=== PATIENT | female | born 1990 | race Caucasian/White ===

== ENCOUNTER 2021-12-18 00:31 | Emergency (ER) | payer OTHER ==
[~2021-12-18] VITALS: Ht 175.3 cm; Wt 170.0 kg
[2021-12-18] VITALS (9 sets, daily range): BP systolic 129–165; BP diastolic 66–94
[2021-12-18 01:33] LABS: HEMATOCRIT 43.4 % (37.0-47.0); HEMOGLOBIN 13.7 g/dl (12.0-16.0); IMMATURE GRANULOCYTES 0.3 % (0.0-5.0); MEAN CELL VOLUME 91.6 fL CALC (80.0-100.0); MEAN CORPUSCULAR HGB 28.9 pG CALC (26.0-32.0); MEAN CORPUSCULAR HGB CONC 31.6 g/dL CAL (32.0-36.0); NEUT# 8.24 thou/uL (2.00-7.15); RED BLOOD COUNT 4.74 mill/uL (4.20-5.60); RED CELL DISTRI WIDTH 12.9 % (11.5-15.5)
[2021-12-18 01:35] LABS: URINE BILIRUBIN - DIPSTICK NEGATIVE (NEGATIVE); URINE BLOOD DIPSTICK NEGATIVE (NEGATIVE); URINE COLOR YELLOW; URINE GLUCOSE - DIPSTICK NEGATIVE (NEGATIVE); URINE KETONE NEGATIVE (NEGATIVE); URINE LEUK ESTERASE NEGATIVE (NEGATIVE); URINE PROTEIN - DIPSTICK NEGATIVE (NEG-TRACE); URINE SPECIFIC GRAVITY >=1.030; URINE UROBILINOGEN - DIPSTICK 0.2 E.U./dL (0.2)
[2021-12-18 01:38] LABS: URINE NITRITE - DIPSTICK NEGATIVE (Negative)
[2021-12-18 01:39] LABS: ALBUMIN 3.8 g/dL (3.2-5.0); ALKALINE PHOSPHATASE 66 u/l (38-126); AMYLASE 61 u/l (30-110); ANION GAP 13 (6-22 (CALC)); BILIRUBIN, TOTAL 0.3 mg/dL (0.0-1.4); BUN 10 mg/dL (7-17); BUN/CREATININE RATIO 13 (12-20 (CALC)); CARBON DIOXIDE 25 mmol/l (22-30); CHLORIDE 104 mmol/l (95-108); CREATININE 0.8 mg/dL (0.5-1.0); GFR FOR AFR.AMER. > 60 ML/MIN (>=60 (CALC)); GFR OTHER RACES > 60 ML/MIN (>=60 (CALC)); LIPASE 95 u/l (23-300); POTASSIUM 4.2 mmol/l (3.5-5.1); SGOT/AST 19 u/l (14-36); SODIUM 138 mmol/l (137-146); TOTAL PROTEIN 6.7 g/dL (6.3-8.2)
[2021-12-18] MEDS ORDERED: OB COMPLET2 PO (04:53)
== END 2021-12-18 05:15 | disposition home or self-care (01) ==
LOC: ED 00:31
PROVIDERS: Family Medicine
DX: F17.210 Nicotine dependence, cigarettes, uncomplicated (principal); R10.32 Left lower quadrant pain; O26.891 Other specified pregnancy related conditions, first trimester; Z3A.01 Less than 8 weeks gestation of pregnancy

== ENCOUNTER 2022-02-16 22:42 | Emergency (ER) | payer OTHER ==
[~2022-02-16] VITALS: Ht 175.3 cm; Wt 159.0 kg
[~2022-02-16 22:42] MED LIST: OB COMPLET2 PO
[2022-02-16 23:00] VITALS: BP 140/66
[2022-02-16 23:47] LABS: HEMATOCRIT 38.1 % (37.0-47.0); HEMOGLOBIN 12.1 g/dl (12.0-16.0); IMMATURE GRANULOCYTES 0.2 % (0.0-5.0); MEAN CELL VOLUME 91.8 fL CALC (80.0-100.0); MEAN CORPUSCULAR HGB 29.2 pG CALC (26.0-32.0); MEAN CORPUSCULAR HGB CONC 31.8 g/dL CAL (32.0-36.0); NEUT# 7.77 thou/uL (2.00-7.15); RED BLOOD COUNT 4.15 mill/uL (4.20-5.60); RED CELL DISTRI WIDTH 13.1 % (11.5-15.5)
[2022-02-17 00:06] LABS: ALBUMIN 3.2 g/dL (3.2-5.0); ALKALINE PHOSPHATASE 55 u/l (38-126); AMYLASE 66 u/l (30-110); ANION GAP 8 (6-22 (CALC)); BUN 8 mg/dL (7-17); BUN/CREATININE RATIO 13 (12-20 (CALC)); CARBON DIOXIDE 26 mmol/l (22-30); CHLORIDE 106 mmol/l (95-108); CREATININE 0.6 mg/dL (0.5-1.0); GFR FOR AFR.AMER. > 60 ML/MIN (>=60 (CALC)); GFR OTHER RACES > 60 ML/MIN (>=60 (CALC)); LIPASE 84 u/l (23-300); POTASSIUM 3.7 mmol/l (3.5-5.1); SGOT/AST 17 u/l (14-36); SODIUM 136 mmol/l (137-146); TOTAL PROTEIN 6.1 g/dL (6.3-8.2)
[2022-02-17 00:08] LABS: BILIRUBIN, TOTAL 0.1 mg/dL (0.0-1.4)
[2022-02-17 00:18] LABS: MYOGLOBIN 25 ng/mL (0 - 62)
[2022-02-17 02:25] VITALS: BP 140/66
[2022-02-17] MEDS ORDERED: EQ OMEPRAZOLE20 MG PO (02:35)
[2022-02-17] MEDS ORDERED: ONDANSETRON4 MG PO (02:35)
== END 2022-02-17 02:40 | disposition home or self-care (01) ==
LOC: ED 22:42
PROVIDERS: Emergency Medicine
DX: O99.612 Diseases of the digestive system complicating pregnancy, second trimester (principal); K21.9 Gastro-esophageal reflux disease without esophagitis; O99.332 Smoking (tobacco) complicating pregnancy, second trimester; F17.200 Nicotine dependence, unspecified, uncomplicated; Z3A.17 17 weeks gestation of pregnancy
CPT/HCPCS: S0164

== ENCOUNTER 2022-02-20 22:58 | Emergency (ER) | payer OTHER ==
[~2022-02-20] VITALS: Ht 175.3 cm; Wt 154.0 kg
[~2022-02-20 22:58] MED LIST changes: +EQ OMEPRAZOLE20 MG PO; +ONDANSETRON4 MG PO
[2022-02-21 00:44] LABS: HEMATOCRIT 37.1 % (37.0-47.0); HEMOGLOBIN 12.3 g/dl (12.0-16.0); IMMATURE GRANULOCYTES 0.5 % (0.0-5.0); MEAN CELL VOLUME 89.6 fL CALC (80.0-100.0); MEAN CORPUSCULAR HGB 29.7 pG CALC (26.0-32.0); MEAN CORPUSCULAR HGB CONC 33.2 g/dL CAL (32.0-36.0); NEUT# 7.97 thou/uL (2.00-7.15); RED BLOOD COUNT 4.14 mill/uL (4.20-5.60); RED CELL DISTRI WIDTH 13.1 % (11.5-15.5)
[2022-02-21 01:02] LABS: ALBUMIN 3.4 g/dL (3.2-5.0); ALKALINE PHOSPHATASE 62 u/l (38-126); ANION GAP 10 (6-22 (CALC)); BILIRUBIN, TOTAL 0.1 mg/dL (0.0-1.4); BUN 8 mg/dL (7-17); BUN/CREATININE RATIO 12 (12-20 (CALC)); CARBON DIOXIDE 24 mmol/l (22-30); CHLORIDE 109 mmol/l (95-108); CREATININE 0.7 mg/dL (0.5-1.0); GFR FOR AFR.AMER. > 60 ML/MIN (>=60 (CALC)); GFR OTHER RACES > 60 ML/MIN (>=60 (CALC)); POTASSIUM 3.8 mmol/l (3.5-5.1); SGOT/AST 22 u/l (14-36); SODIUM 139 mmol/l (137-146); TOTAL PROTEIN 6.4 g/dL (6.3-8.2)
[2022-02-21 01:03] LABS: URINE BILIRUBIN - DIPSTICK NEGATIVE (NEGATIVE); URINE BLOOD DIPSTICK NEGATIVE (NEGATIVE); URINE COLOR YELLOW; URINE GLUCOSE - DIPSTICK NEGATIVE (NEGATIVE); URINE KETONE NEGATIVE (NEGATIVE); URINE LEUK ESTERASE NEGATIVE (NEGATIVE); URINE PH 5.5 (4.5-8.0); URINE PROTEIN - DIPSTICK NEGATIVE (NEG-TRACE); URINE SPECIFIC GRAVITY >=1.030; URINE UROBILINOGEN - DIPSTICK 0.2 E.U./dL (0.2)
[2022-02-21 01:10] LABS: URINE NITRITE - DIPSTICK NEGATIVE (Negative)
[2022-02-21 01:48] LABS: BETA-HCG, QUANT(RESULT NUMBER) 18696 mIU/mL
[2022-02-21 02:08] VITALS: BP 133/69
== END 2022-02-21 02:42 | disposition home or self-care (01) ==
LOC: ED 22:58
PROVIDERS: Emergency Medicine
DX: O20.0 Threatened abortion (principal); O99.212 Obesity complicating pregnancy, second trimester; E66.9 Obesity, unspecified; O99.332 Smoking (tobacco) complicating pregnancy, second trimester; F17.200 Nicotine dependence, unspecified, uncomplicated; Z3A.17 17 weeks gestation of pregnancy

== ENCOUNTER 2022-10-15 20:50 | Emergency (ER) | payer OTHER ==
[~2022-10-15] VITALS: Ht 175.3 cm; Wt 154.0 kg
[2022-10-15 21:10] VITALS: BP 147/95
[2022-10-15] MEDS ORDERED: NAPROXEN500 MG PO (22:01)
== END 2022-10-15 23:07 | disposition home or self-care (01) ==
LOC: ED 20:50
DX: S63.502A Unspecified sprain of left wrist, initial encounter (principal); E66.9 Obesity, unspecified; F17.200 Nicotine dependence, unspecified, uncomplicated; X58.XXXA Exposure to other specified factors, initial encounter

== ENCOUNTER 2023-04-25 18:06 | Emergency (ER) | payer OTHER ==
[~2023-04-25] VITALS: Ht 175.3 cm; Wt 147.0 kg
[~2023-04-25 18:06] MED LIST changes: +NAPROXEN500 MG PO
[2023-04-25] MEDS ORDERED: ADDERALL30 MG PO (18:36)
[2023-04-25] MEDS ORDERED: TRILEPTAL300 M1 PO (18:36)
[2023-04-25] MEDS ORDERED: NAPROXEN500 MG PO (18:59)
[2023-04-25] MEDS ORDERED: TRAMADOL HYDROC50 M1 PO (18:59)
[2023-04-25] MEDS ORDERED: PENICILLN VK500 MG PO (18:59)
[2023-04-25 19:15] VITALS: BP 145/78
== END 2023-04-25 19:27 | disposition home or self-care (01) ==
LOC: ED 18:06
DX: K04.7 Periapical abscess without sinus (principal); K02.9 Dental caries, unspecified; M84.68XA Pathological fracture in other disease, other site, initial encounter for fracture; E66.9 Obesity, unspecified; F17.210 Nicotine dependence, cigarettes, uncomplicated

== ENCOUNTER 2024-01-12 19:42 | Emergency (ER) | payer OTHER ==
[~2024-01-12] VITALS: Ht 175.3 cm; Wt 181.0 kg
[~2024-01-12 19:42] MED LIST changes: +ADDERALL30 MG PO; +PENICILLN VK500 MG PO; +TRAMADOL HYDROC50 M1 PO; +TRILEPTAL300 M1 PO
[2024-01-12 20:10] VITALS: BP 115/54
[2024-01-12] MEDS ORDERED: PROMETHAZINE HCL 25 MG/ML AMP IV ONE (20:20)
[2024-01-12] MEDS ORDERED: SODIUM CHLORIDE 0.9% 250 ML IV ONE (20:20)
[2024-01-12] MEDS ORDERED: DiphenhydrAMINE HCL 50 MG/ML SDV IV ONE (20:20)
[2024-01-12] MEDS ORDERED: BUTALBITAL-APAP-CAFFEINE 50-325-40 TAB PO ONE (20:20)
[2024-01-12] MEDS ORDERED: ASPIRIN LOW81 M1 PO (20:34)
[2024-01-12] MEDS ORDERED: NORMODYNE/TRAN100 MG PO (20:34)
[2024-01-12] MEDS ORDERED: SODIUM CHLORIDE 0.9% 1,000 ML IV ONE (20:35)
[2024-01-12] MEDS ORDERED: PRENATA3 PO (20:35)
[2024-01-12 20:39] LABS: URINE BLOOD DIPSTICK Trace-intact (NEGATIVE); URINE GLUCOSE - DIPSTICK Negative (NEGATIVE); URINE KETONE Trace mg/dL (NEGATIVE); URINE NITRITE - DIPSTICK Negative (Negative); URINE PROTEIN - DIPSTICK 30 mg/dL (NEG-TRACE); URINE SPECIFIC GRAVITY >=1.030; URINE UROBILINOGEN - DIPSTICK 0.2 E.U./dL (0.2)
[2024-01-12 20:40] LABS: BASO% 0.2 % (0-3); EOS% 2.1 % (0-8); HEMATOCRIT 37.1 % (37.0-47.0); HEMOGLOBIN 11.9 g/dl (12.0-16.0); IMMATURE GRANULOCYTES 0.4 % (0.0-5.0); LYMPH% 21.7 % (15-41); MEAN CELL VOLUME 90.9 fL CALC (80.0-100.0); MEAN CORPUSCULAR HGB 29.2 pG CALC (26.0-32.0); MEAN CORPUSCULAR HGB CONC 32.1 g/dL CAL (32.0-36.0); MONO% 6.3 % (2-13); NEUT# 9.75 thou/uL (2.00-7.15); NEUT% 69.3 % (42-76); RED BLOOD COUNT 4.08 mill/uL (4.20-5.60); RED CELL DISTRI WIDTH 13.3 % (11.5-15.5); URINE COLOR Yellow
[2024-01-12 20:41] LABS: URINE LEUK ESTERASE Small (NEGATIVE)
[2024-01-12 20:47] LABS: URINE SQUAMOUS EPITHELIAL CELL MODERATE EPI/hpf (0-FEW)
[2024-01-12 20:50] LABS: URINE BACTERIA FEW hpf
[2024-01-12 20:52] LABS: ALBUMIN 3.5 g/dL (3.2-5.0); BILIRUBIN, TOTAL 0.2 mg/dL (0.02-1.3); CREATININE 0.6 mg/dL (0.5-1.0); TOTAL PROTEIN 6.7 g/dL (6.3-8.2)
[2024-01-12] MEDS ORDERED: OMNICEF300 M1 PO (22:27)
[2024-01-12 23:02] VITALS: BP 113/57
== END 2024-01-12 23:00 | disposition home or self-care (01) ==
LOC: ED 19:42
PROVIDERS: Internal Medicine
DX: O99.512 Diseases of the respiratory system complicating pregnancy, second trimester (principal); J32.9 Chronic sinusitis, unspecified; O23.42 Unspecified infection of urinary tract in pregnancy, second trimester; N39.0 Urinary tract infection, site not specified; O99.212 Obesity complicating pregnancy, second trimester; E66.9 Obesity, unspecified; Z3A.25 25 weeks gestation of pregnancy